=== PATIENT | female | born 1950 | race Caucasian/White ===

== ENCOUNTER 2016-12-06 01:06 | Inpatient (IN) | payer OTHER ==
[~2016-12-06] VITALS: Ht 165.1 cm; Wt 70.3 kg
[~2016-12-06 01:06] MED LIST: AMLODIPINE BES2.5 M1 PO; ASPIRIN81 M1 PO; GLIMEPIRIDE1 MG PO; GLUCOPHAGE850 MG PO; LOSARTAN POTASS50 MG PO; NITROSTAT0.4 M1 SL; PRAVACHOL80 MG PO
[2016-12-06 01:14] VITALS: BP 150/79
--- NOTE | 2016-12-06 01:22 | NUR ---
PT TAKEN TO BED 3
--- NOTE | 2016-12-06 01:27 | NUR ---
PT IS 66Y/F C/O BACK PAIN AND CHILLS X 11 PM. PT STATES WAS SEEN BY PMD YESTERDAY AND WAS DIAGNOSED WITH UTI. ON CIPRO 500MG BID WAS PRESCRIBED. HX: DM, HNT, STROKE. BS 116.
--- NOTE | 2016-12-06 01:38 | NUR ---
Dr. Hein evaluating patient at bedside.
[2016-12-06] MEDS ORDERED: ONDANSETRON 4 MG/2 ML VIAL IVP ONE (01:45)
[2016-12-06] MEDS ORDERED: NACL 0.9% 1,000 ML IV ONE ×2 (01:45→02:30)
[2016-12-06] MEDS ORDERED: MORPHINE SULFATE 4 MG/ML SYR IVP ONE (01:45)
[2016-12-06] MEDS ORDERED: PIPERACILLIN/TAZOBACTAM 3.375 GM in DEXTROSE 5% 50 ML IV ONE (02:30)
[2016-12-06] MEDS ORDERED: PIPERACILLIN/TAZOBACTAM 3.375 GM VIAL IV ONE ×2 (02:43→04:33)
[2016-12-06] MEDS ORDERED: ONDANSETRON 4 MG/2 ML VIAL IVP PRN (02:45)
[2016-12-06] MEDS ORDERED: NITROGLYCERIN 0.4 MG TAB SL PRN (02:50)
--- NOTE | 2016-12-06 03:22 | NUR ---
Patient will be admitted to care of DR. SALAZAR. Admited to TELEMETRY. Will go to room 122A. Belongings list completed. Report to LINDA WEAVER.
--- NOTE | 2016-12-06 03:45 | NUR ---
RECEIVED REPORT FROM ED RN FOR CONTINUITY OF CARE. 66 Y.O. FEMALE ADMITTED TO TELE UNIT WITH DX: UTI, VIA GURNEY, PT ABLE TO AMBULATE TO BED. DISCUSSED PLAN OF CARE WITH PATIENT, VERBALIZED UNDERSTANDING. SHIFT ASSESSMENT DONE, VS TAKEN, STABLE. NO S/S OF RESPIRATORY DISTRESS NOTED ON ROOM AIR. PATIENT STATES LOWER BACK PAIN, WILL MEDICATE PER MD ORDER. SKIN INTACT. BOWEL SOUNDS PRESENT. PT ABLE TO VOID AND AMBULATE TO RESTROOM. SAFETY PRECAUTIONS ENFORCED. ORIENTED PATIENT TO ROOM AND EDUCATED ON USE OF CALL LIGHT. WILL CONTINUE TO MONITOR.
[2016-12-06 04:00] VITALS: BP 155/68
[2016-12-06] MEDS: NACL 0.9% 1,000 ML IV SCH ×4 (04:06→22:42)
[2016-12-06] MEDS: MORPHINE SULFATE 2 MG/ML SYR IVP PRN ×2 (04:06→08:06)
--- NOTE | 2016-12-06 04:06 | NUR ---
PT C/O 05/11 LOWER BACK PAIN, MEDICATED PER MD ORDER. CALL LIGHT WITHIN REACH. WILL CONTINUE TO MONITOR.
[2016-12-06] MEDS ORDERED: PIPERACILLIN/TAZOBACTAM 3.375 GM in DEXTROSE 5% 50 ML IV SCH (05:00)
[2016-12-06] MEDS ORDERED: INFLUENZA VIRUS VACCINE QUAD 0.5 ML SYR IMVAC PRN (05:15)
[2016-12-06] MEDS ORDERED: PNEUMOCOCCAL VACCINE 23 MCG/0.5 ML VIAL IMVAC PRN (05:15)
--- NOTE | 2016-12-06 06:02 | NUR ---
PT AMBULATED TO RESTROOM, VOIDED. NOW BACK IN BED RESTING. NO S/S OF DISTRESS OR DISCOMFORT NOTED. WILL CONTINUE TO MONITOR.
--- NOTE | 2016-12-06 07:15 | NUR ---
ENDORSED PATIENT TO DAYSHIFT RN FOR CONTINUITY OF CARE, PATIENT IS IN STABLE CONDITION.
--- NOTE | 2016-12-06 07:16 | NUR ---
PT ALERT AND ORIENTED X4, FRENCH SPEAKING. BREATHING EVENLY AND UNLABORED, NO SIGNS OF ACUTE DISTRESS. SKIN IS WARM AND DRY. NO SIGNS OF ANY BOWEL/BLADDER DISCOMFORT AT THIS TIME. NO C/O ANY PAIN. ALL NEEDS ATTENDED, SAFETY PRECAUTIONS MAINTAINED. CALL LIGHT WITHIN REACH.
[2016-12-06 07:48] VITALS: BP 95/57
[2016-12-06] MEDS: ASPIRIN 81 MG TAB.CHEW PO SCH (08:06)
[2016-12-06] MEDS: ENOXAPARIN 30 MG/0.3 ML SYR SUBQ SCH (08:07)
--- NOTE | 2016-12-06 08:48 | NUR ---
PATIENT HAS BEEN SCREENED AND CATEGORIZED HIGH NUTRITION RISK. PATIENT WILL BE SEEN WITHIN 1-2 DAYS OF ADMISSION. 12/06/16-12/07/[address]
--- NOTE | 2016-12-06 10:16 | NUR ---
WAS SEEN BY DR. BARBOSA, RECEIVED NEW LAB AND IMAGING ORDERS. NOTED AND CARRIED OUT.
[2016-12-06] MEDS ORDERED: DEXTROSE 50% 50 ML SYR IVP PRN (10:20)
--- NOTE | 2016-12-06 10:27 | NUR ---
ADDITIONAL ORDERS RECEIVED FROM DR. BARBOSA. NOTED AND CARRIED OUT.
[2016-12-06] MEDS: BLOOD GLUCOSE MONITORING 1 DEV DEV FS SCH ×3 (11:48→21:00)
[2016-12-06 12:00] VITALS: BP 128/62
[2016-12-06] MEDS: PIPER/TAZO 3.375GM/D5W PREMIX 50 ML IV SCH ×2 (12:04→20:02)
--- NOTE | 2016-12-06 12:49 | NUR ---
PT TRANSFERRED TO RM 109. FAMILY AND PT AWARE.
--- NOTE | 2016-12-06 14:58 | NUR ---
CM NOTE INITIAL REVIEW SENT TO [facility] FAX# [phone] ATTN: LOWELL Villeda PH# [phone]
[2016-12-06 16:00] VITALS: BP 100/56
[2016-12-06] MEDS: metFORMIN 850 MG TAB PO SCH (16:55)
--- NOTE | 2016-12-06 19:04 | NUR ---
PT ALERT AND RESPONSIVE, NO SIGNS OF ACUTE DISTRESS. ENDORSED TO ONCOMING NEWSPAPER INSERTER NURSE FOR CONTINUITY OF CARE.
--- NOTE | 2016-12-06 19:10 | NUR ---
RECEIVED PT ON BED, AAOX4, GEORGIAN SPEAKING, 2/10 PAIN AT THIS TIME, ENCOURAGE TO CALL IF PAIN WORSENS, VERBALIZED UNDERSTANDING, IVF INFUSING WELL, POC DISCUSSED, AT BEDSIDE, CALL LIGHT WITHIN REACH.
[2016-12-06 20:00] VITALS: BP 125/61
--- NOTE | 2016-12-06 20:20 | NUR ---
VITAL SIGNS TAKEN, SB-48 BPM, BP STABLE, ASYMPTOMATIC, PT AMBULATED TO BR WITH STEADY GAIT AND VOIDED FREELY, BLOOD SUGAR CHECKED WITH 128 RESULT, SNACK PROVIDED, DUE IV ANTIBIOTIC CONTINUED, ALL NEEDS ATTENDED.
--- NOTE | 2016-12-06 22:00 | NUR ---
ROUNDED ON PT, SLEEPING, NO SIGNS OF PAIN, IVF INFUSING WELL, MONITORED CLOSELY.
[2016-12-07] VITALS: BP 113/57
--- NOTE | 2016-12-07 | NUR ---
SLEEPING, EASILY AROUSABLE, AMBULATED TO BR AND VOIDED FREELY, VITAL SIGNS STABLE, SB ON TELE, ASYMPTOMATIC, CONTINUE TO MONITOR CLOSELY.
[2016-12-07] MEDS: NACL 0.9% 1,000 ML IV SCH ×3 (02:33→18:42)
[2016-12-07 04:00] VITALS: BP 115/54
--- NOTE | 2016-12-07 04:00 | NUR ---
PT SLEEPING, EASILY AROUSABLE, VITAL SIGNS STABLE, SB ON TELE, ASYMPTOMATIC, DENIES ANY PAIN, MONITORED CLOSELY.
[2016-12-07] MEDS: PIPER/TAZO 3.375GM/D5W PREMIX 50 ML IV SCH ×3 (05:10→20:19)
--- NOTE | 2016-12-07 05:15 | NUR ---
IVF INFUSING WELL, DUE IV ANTIBIOTIC ADMINISTERED.
--- NOTE | 2016-12-07 06:00 | NUR ---
PT EASILY AROUSABLE, DENIES ANY PAIN, BLOOD SUGAR CHECKED WITH 96 RESULT, IVF INFUSING WELL.
[2016-12-07] MEDS: BLOOD GLUCOSE MONITORING 1 DEV DEV FS SCH ×4 (06:50→20:22)
--- NOTE | 2016-12-07 07:20 | NUR ---
PT AWAKE, NO DISTRESS NOTED, REPORT GIVEN TO RN JOHN FOR CONTINUITY OF CARE.
--- NOTE | 2016-12-07 07:30 | NUR ---
RECEIVED PT ON BED AAOX4. NO SOB NOTED. NO C/O PAIN AT THIS TIME. IV TO LEFT AC PATENT AND INTACT. CHEST CLEAR. ABDOMEN BOWEL SOUNDS PRESENT. NO EDEMA NOTED. INSTRUCTED PT TO CALL FOR ASSISTANCE, CALL LIGHT WITHIN REACH, PT VERBALIZED UNDERSTANDING.
[2016-12-07 08:00] VITALS: BP 121/87
[2016-12-07] MEDS: metFORMIN 850 MG TAB PO SCH ×2 (08:00→17:00)
[2016-12-07] MEDS: ASPIRIN 81 MG TAB.CHEW PO SCH (09:11)
[2016-12-07] MEDS: ENOXAPARIN 30 MG/0.3 ML SYR SUBQ SCH (09:12)
[2016-12-07 12:00] VITALS: BP 126/68
[2016-12-07] MEDS ORDERED: MAG SULF 2000 MG/WATER PREMIX 50 ML IV SCH (12:00)
--- NOTE | 2016-12-07 12:00 | NUR ---
PT SEEN BY DR. BARBOSA WITH NEW ORDERS.
--- NOTE | 2016-12-07 12:41 | NUR ---
12/07/16 RD INITIAL ASSESSMENT COMPLETED PLEASE REFER TO NUTRITION ASSESSMENT UNDER CARE ACTIVITY FOR ESTIMATED NUTRITIONAL NEEDS. RD RECOMMENDATIONS: 1. CONTINUE CCHO 60 GM DIET TOLERATED PER MD 2. RD WILL F/U 3-5 DAYS; MODERATE RISK. ERINN FAJARDO RD
--- NOTE | 2016-12-07 14:55 | NUR ---
CM NOTE CONCURRENT REVIEW SENT TO [facility] FAX# [phone] ATTN: LOWELL # [phone]
--- NOTE | 2016-12-07 15:30 | NUR ---
PT WHEELED TO CT SCAN DEPT IN STABLE CONDITION.
[2016-12-07 16:00] VITALS: BP 136/71
--- NOTE | 2016-12-07 16:08 | NUR ---
PT BACK FOR CT SCAN IN STABLE CONDITION.
--- NOTE | 2016-12-07 17:03 | NUR ---
METFORMIN HELD FOR 48 HRS. ( TO HAD CONTRAST FOR CT SCAN EARLIER).
--- NOTE | 2016-12-07 19:20 | NUR ---
PT AWAKE, NO SOB NOTED. NO C/O PAIN. WILL ENDORSE TO NEXT SHIFT NURSE FOR CONTINUITY OF CARE.
--- NOTE | 2016-12-07 19:21 | NUR ---
RECEIVED REPORT FROM DAY SHIFT NURSE. PATIENT IS AAOX4, DENIES PAIN AT THIS TIME, RESTING. ON ROOM AIR, NO S/S OF RESPI. DISTRESS/DISCOMFORT NOTED. IV SITE IS PATENT, INTACT AND INFUSING WELL. PLAN OF CARE DISCUSSED, VERBALIZED UNDERSTANDING. SAFETY MEASURES CHECKED, CALL LIGHT WITHIN REACH. WILL CONTINUE TO MONITOR.
[2016-12-07 20:00] VITALS: BP 124/65
--- NOTE | 2016-12-07 20:23 | NUR ---
BLOOD SUGAR CHECKED, BSL= 152, INSULIN COVERAGE TO BE GIVEN. SCHEDULED ANTIBIOTIC WAS GIVEN, EXPLAINED BENEFITS AND S/E, VERBALIZED UNDERSTANDING.
[2016-12-07] MEDS: INSULIN LISPRO SLIDING SCALE 100 UNITS/ML VIAL SUBQ PRN (21:25)
--- NOTE | 2016-12-07 21:27 | NUR ---
ADMINISTERED HUMALOG 2 UNITS SQ, EXPLAINED BENEFITS AND S/E, VERBALIZED UNDERSTANDING. PT TOLERATED WELL.
[2016-12-08] VITALS: BP 112/51
--- NOTE | 2016-12-08 | NUR ---
SLEEPING BUT AROUSABLE BY HER NAME. V/S CHECKED. PULSE RATE OF 45, PT HAS NO S/S OF RESPIRATORY DISTRESS/DISCOMFORT. CHARGE NURSE MADE AWARE.
[2016-12-08] MEDS: NACL 0.9% 1,000 ML IV SCH ×4 (03:52→20:24)
[2016-12-08 04:00] VITALS: BP 137/64
--- NOTE | 2016-12-08 04:00 | NUR ---
PT SLEEPING AROUSABLE BY HER NAME. V/S CHECKED AND STABLE. DENIES PAIN. CALL LIGHT WITHIN REACH.
[2016-12-08] MEDS: PIPER/TAZO 3.375GM/D5W PREMIX 50 ML IV SCH ×3 (05:50→20:15)
--- NOTE | 2016-12-08 05:53 | NUR ---
PT SLEEPING BUT AROUSABLE BY HIS NAME. DUE MEDICATION ADMINISTERED, EXPLAINED BENEFITS AND S/E, VERBLAIZED UNDERSTANDING. BLOOD DRAWN THROUGH CENTRAL LINE. PT HAS NO SIGNS OF DISTRESS. Addendum: 12/08/16 at 0555 by Grey Rolon RN WRONG PATIENT.
--- NOTE | 2016-12-08 06:10 | NUR ---
BLOOD SUGAR CHECKED, BSL+ 122, NO INSULIN COVERAGE. Addendum: 12/08/16 at 0612 by Grey Rolon RN BSL= 122
[2016-12-08] MEDS: BLOOD GLUCOSE MONITORING 1 DEV DEV FS SCH ×4 (06:34→20:24)
--- NOTE | 2016-12-08 07:14 | NUR ---
ENDORSED PT TO DAY SHIFT NURSE FOR CONTINUITY OF CARE. PT IS IN STABLE CONDITION.
--- NOTE | 2016-12-08 07:30 | NUR ---
RECEIVED PT RESTING COMFORTABLY IN BED, AAOX4, ABLE TO VERBALIZE NEEDS; NO COMPLAINTS OF PAIN, SOB, OR S/S ACUTE DISTRESS AT THIS TIME. ROUTINE/PLAN OF CARE DISCUSSED AND REVIEWED WITH DAUGHTER PRESENT, PT VERBALIZES UNDERSTANDING AND COMPLIANCE. IVF INFUSING TO LEFT AC, SITE ASYMPTOMATIC. SAFETY PRECAUTIONS OBSERVED AND MAINTAINED, ENCOURAGED PT TO CALL FOR ASSISTANCE NEEDED. Addendum: 12/08/16 at 0754 by Nancy Hawley RN CORRECTION: ROUTINE/PLAN OF CARE DISCUSSED AND REVIEWED, PT VERBALIZES UNDERSTANDING AND COMPLIANCE.
[2016-12-08 08:00] VITALS: BP 133/67
[2016-12-08] MEDS: metFORMIN 850 MG TAB PO SCH ×2 (08:00→16:22)
[2016-12-08] MEDS: ASPIRIN 81 MG TAB.CHEW PO SCH (08:53)
[2016-12-08] MEDS: MORPHINE SULFATE 2 MG/ML SYR IVP PRN (08:53)
[2016-12-08] MEDS: ENOXAPARIN 30 MG/0.3 ML SYR SUBQ SCH (08:56)
--- NOTE | 2016-12-08 08:57 | NUR ---
VSS. HELD METFORMIN ORDERED (S/P CT WITH CONTRAST), REMAINING MEDS GIVEN ORDERED WITH EDUCATION. MEDICATED WITH MORPHINE IVP FOR C/O LEFT LOWER BACK PAIN, SEE PAIN ASSESSMENT. AT BEDSIDE. WILL CONTINUE TO MONITOR.
--- NOTE | 2016-12-08 11:15 | NUR ---
PT SEEN AMBULATING IN HALLWAY WITH , STEADY GAIT NOTED.
[2016-12-08] MEDS: INSULIN LISPRO SLIDING SCALE 100 UNITS/ML VIAL SUBQ PRN (11:31)
[2016-12-08 11:58] VITALS: BP 115/64
--- NOTE | 2016-12-08 12:30 | NUR ---
CM NOTE CONCURRENT REVIEW SENT TO [facility] FAX# [phone] ATTN: LOWELL Villeda PH# [phone]
--- NOTE | 2016-12-08 14:00 | NUR ---
CONDITION REMAINS STABLE.
[2016-12-08] MEDS ORDERED: SODIUM PHOSPHATE 118 ML ENEM RC SCH (15:37)
[2016-12-08 16:00] VITALS: BP 119/67
--- NOTE | 2016-12-08 16:35 | NUR ---
VSS. FLEET ENEMA GIVEN, PT TOLERATED WELL. AT BEDSIDE, WILL CONTINUE TO MONITOR.
--- NOTE | 2016-12-08 17:00 | NUR ---
PT STATES SHE HAD A BM, SMALL HARD STOOL, LIKE "STONES". PRUNE JUICE GIVEN.
--- NOTE | 2016-12-08 19:07 | NUR ---
CONDITION STABLE, ENDORSED PLAN OF CARE TO COMBAT INFORMATION CENTER OFFICER RN.
--- NOTE | 2016-12-08 19:20 | NUR ---
RECEIVED PATIENT FROM DAY SHIFT RN FOR CONTINUITY OF CARE. PATIENT IS A&OX4, DISCUSSED PLAN OF CARE WITH PATIENT, VERBALIZED UNDERSTANDING. SHIFT ASSESSMENT DONE, VS TAKEN, STABLE. SINUS ERICK ON TELE MONITOR HR 47, ASYMPTOMATIC. NO S/S OF RESPIRATORY DISTRESS NOTED ON ROOM AIR. PATIENT STATES LOWER BACK PAIN 3/10, REFUSED PAIN MEDS AT THIS TIME. IV LT AC 20 GAUGE PATENT AND INFUSING FLUIDS WELL. SKIN INTACT. SAFETY PRECAUTIONS ENFORCED. CALL LIGHT PLACED WITHIN REACH AND PATIENT ENCOURAGED TO USE FOR ASSISTANCE. WILL CONTINUE TO MONITOR.
[2016-12-08 19:46] VITALS: BP 118/67
[2016-12-08] MEDS: ACETAMINOPHEN 325 MG TAB PO PRN (20:25)
--- NOTE | 2016-12-08 20:25 | NUR ---
DUE ANTIBIOTICS ADMINISTERED. BLOOD SUGAR TAKEN, 142, NO INSULIN COVERAGE NEEDED. PT C/O 03/11 LOWER BACK PAIN, MEDICATED PER MD ORDER. CALL LIGHT WITHIN REACH. WILL CONTINUE TO MONITOR.
--- NOTE | 2016-12-08 22:04 | NUR ---
PT IS SLEEPING. NO S/S OF DISTRESS OR DISCOMFORT NOTED. CALL LIGHT WITHIN REACH, WILL CONTINUE TO MONITOR.
[2016-12-09] VITALS: BP 136/60
--- NOTE | 2016-12-09 00:06 | NUR ---
VS TAKEN, STABLE. ALL NEEDS MET AT THIS TIME PATIENT STATES SHE IS TIRED AND WANTS TO SLEEP. WILL CONTINUE TO MONITOR.
--- NOTE | 2016-12-09 01:51 | NUR ---
PT IS SLEEPING. NO S/S OF DISTRESS OR DISCOMFORT NOTED. CALL LIGHT IN REACH.
[2016-12-09 04:00] VITALS: BP 134/61
[2016-12-09] MEDS: PIPER/TAZO 3.375GM/D5W PREMIX 50 ML IV SCH (04:43)
--- NOTE | 2016-12-09 04:44 | NUR ---
VS TAKEN, STABLE. DUE ANTIBIOTICS ADMINISTERED, TOLERATED WELL. CALL LIGHT WITHIN REACH.
[2016-12-09] MEDS: BLOOD GLUCOSE MONITORING 1 DEV DEV FS SCH ×2 (05:42→11:30)
--- NOTE | 2016-12-09 05:45 | NUR ---
BLOOD SUGAR TAKEN, 129, NO INSULIN COVERAGE NEEDED. PATIENT AMBULATED TO RESTROOM. WILL CONTINUE TO MONITOR.
--- NOTE | 2016-12-09 07:08 | NUR ---
ENDORSED PATIENT TO DAYSHIFT RN FOR CONTINUITY OF CARE, PATIENT IS IN STABLE CONDITION.
--- NOTE | 2016-12-09 07:30 | NUR ---
RECEIVED PT RESTING COMFORTABLY IN BED, AAOX4, ABLE TO VERBALIZE NEEDS; NO COMPLAINTS OF PAIN, SOB, OR S/S ACUTE DISTRESS AT THIS TIME. ROUTINE/PLAN OF CARE DISCUSSED AND REVIEWED, PT VERBALIZES UNDERSTANDING AND COMPLIANCE. IVF INFUSING TO LEFT AC, SITE ASYMPTOMATIC. SAFETY PRECAUTIONS OBSERVED AND MAINTAINED, ENCOURAGED PT TO CALL FOR ASSISTANCE NEEDED.
[2016-12-09 08:00] VITALS: BP 132/71
[2016-12-09] MEDS: ACETAMINOPHEN 325 MG TAB PO PRN (08:22)
[2016-12-09] MEDS: metFORMIN 850 MG TAB PO SCH (08:22)
[2016-12-09] MEDS: ASPIRIN 81 MG TAB.CHEW PO SCH (08:22)
[2016-12-09] MEDS: ENOXAPARIN 30 MG/0.3 ML SYR SUBQ SCH (08:24)
--- NOTE | 2016-12-09 08:25 | NUR ---
VSS; ADMINISTERED ROUTINE MEDS ORDERED WITH EDUCATION, PT TOLERATED WELL. MEDICATED WITH TYLENOL FOR C/O LEFT LOWER BACK PAIN, SEE PAIN ASSESSMENT. INDEPENDENT ADLs OBSERVED. WILL CONTINUE TO MONITOR.
[2016-12-09] MEDS ORDERED: BACTRIM DS 800/1 TAB PO (10:39)
[2016-12-09] MEDS: NACL 0.9% 1,000 ML IV SCH (10:42)
[2016-12-09] MEDS ORDERED: VALACYCLOVIR HYD1 GM PO (11:05)
[2016-12-09] MEDS ORDERED: NORCO 325 MG-51 TAB PO (11:06)
[2016-12-09 11:12] VITALS: BP 132/71
--- NOTE | 2016-12-09 11:40 | NUR ---
DISCHARGED PT HOME AT THIS TIME IN STABLE CONDITION WITH .
--- NOTE | 2016-12-09 12:19 | NUR ---
TEO ESPINOZA SPOKE WITH TEO Villeda OF [facility] TO GIVE HER VERBAL CLINICAL UPDATE ON THE PATIENT AND TO INFORM HER THAT PATIENT IS DISCHARGED TODAY. SENT DISCHARGE SUMMARY TO [facility] FAX# [phone] PH# LOWELL Villeda [phone]
== END 2016-12-09 11:40 | disposition home or self-care (01) | DRG 872 ==
LOC: MED 01:06 → MTU 02:47
PROVIDERS: ADMIT Internal Medicine Pulmonary Disease; ATTEND Internal Medicine Pulmonary Disease
DX: A41.9 Sepsis, unspecified organism (principal); N39.0 Urinary tract infection, site not specified; N10 Acute pyelonephritis; E11.8 Type 2 diabetes mellitus with unspecified complications; I10 Essential (primary) hypertension; B02.9 Zoster without complications; E11.9 Type 2 diabetes mellitus without complications; K59.00 Constipation, unspecified; Z79.4 Long term (current) use of insulin; Z79.899 Other long term (current) drug therapy; Z86.73 Personal history of transient ischemic attack (TIA), and cerebral infarction without residual deficits